=== PATIENT | female | born 1990 | race Caucasian/White ===

== ENCOUNTER → 2017-08-30 | Outpatient (CLI) | payer BC ==
[~2017-08-30] MED LIST: ACET-749 PO; LEVO25TA PO; MTR600X PO; PREN1TAB29
[2017-08-30 14:52] LABS: PREG INTERNAL NEGATIVE QC NEG CLEAR BACKGROUND; PREG INTERNAL POSITIVE QC POS CONTROL LINE
== END | disposition home or self-care (01) ==
LOC: C.LABSPEC 14:03
PROVIDERS: ATTEND Physician Assistant
DX: N91.2 Amenorrhea, unspecified (principal)

== ENCOUNTER → 2017-12-01 | Outpatient (CLI) | payer OTHER | END | disposition home or self-care (01) | LOC: C.LAB1850 08:01 | PROVIDERS: ATTEND Internal Medicine Endocrinology, Diabetes & Metabolism | DX: R63.5 Abnormal weight gain (principal) ==

== ENCOUNTER → 2018-01-13 | Outpatient (CLI) | payer OTHER ==
[2018-01-14 15:30] LABS: MICROSOMAL AB 7 IU/ML (<9)
== END | disposition home or self-care (01) ==
LOC: C.LABMFLN 08:28
PROVIDERS: ATTEND Internal Medicine Endocrinology, Diabetes & Metabolism
DX: R53.83 Other fatigue (principal); R63.5 Abnormal weight gain

== ENCOUNTER → 2018-06-28 | Outpatient (CLI) | payer OTHER ==
[~2018-06-28] MED LIST changes: -ACET-749 PO; +ACET300T3 PO
[2018-06-28 13:55] LABS: ALT/SGPT 25 U/L (12-78); AST/SGOT 14 U/L (15-37); BLOOD UREA NITROGEN 11 mg/dl (7-18); CALCIUM 8.9 mg/dl (8.5-10.1); CARBON DIOXIDE 25 mmol/L (21-32); CHOLESTEROL 153 mg/dl (0-200); CREATININE 0.87 mg/dl (0.60-1.20); GLUCOSE 82 mg/dl (70-99); LDL CHOLESTEROL CALCULATED 84 mg/dl; POTASSIUM 3.8 mmol/L (3.5-5.1); SODIUM 137 mmol/L (136-145)
== END | disposition home or self-care (01) ==
LOC: C.LABMFLN 08:54
PROVIDERS: ATTEND Family Medicine
DX: Z13.220 Encounter for screening for lipoid disorders (principal); Z13.1 Encounter for screening for diabetes mellitus

== ENCOUNTER 2019-04-20 06:53 | Inpatient (IN) ==
--- NOTE | 2019-04-20 07:33 | History & Physical Report ---
Date of Service April 20, 2019 Assessment & Plan (1) 38 weeks gestation of : Abby is a 28yo at 383 weeks who presents with leakage of fluid -Nitrazine positive - She is GBS negative, RI, VDRL/RPR nonreactive, Blood Type B- �Vertex presentation by ultrasound - has been complicated by a dilated renal pelvis. She has a rectal abscess at 32 weeks treated with antibiotics -Admit to labor and delivery for rupture of membranes �Routine care �Lactated Ringer's 125 cc/h �Anticipate vaginal delivery with epidural, consult anesthesia as routine (2) Leakage of amniotic fluid: History of Present Illness Primary Care Provider: Adam Albrecht MD Abby is a 28-year-old G2, P1 who presents at 38+3 with concerns of leakage of fluid. She reports that about 430 this morning she had a sudden gush of fluid and thought that her water broke. She did not have any vaginal bleeding. She has not had any strong contractions. She still feeling good movement. She is group B strep negative, blood type B-, rubella immune, VR DL/RPR nonreactive She had a rectal abscess at 32 weeks treated with antibiotics course has been complicated by renal dilated pelvis followed on ultrasound She has no past medical history of diabetes, hypertension, or depression. No history of STIs. No history of migraines. She has a past medical history of hypothyroid treated with levothyroxine. She takes a vitamin daily. No other medications. No known medication allergies. Her prior was a normal spontaneous vaginal delivery at 37+1, uncomplicated. Allergies Allergy/AdvReac Type Severity Reaction Status Date / Time ethinyl estradiol AdvReac Hypertensio Verified 04/20/19 07:59 [From Ortho Tri-Cyclen (28)] n norgestimate AdvReac Hypertensio Verified 04/20/19 07:59 [From Ortho Tri-Cyclen (28)] n Home Medications Home Medications Medication Instructions Recorded Confirmed Type Vitamin 1 tab PO DAILY 04/20/19 04/20/19 History levothyroxine 75 mcg PO DAILY 04/20/19 04/20/19 History Patient History Medical History Hypothyroidism Janneth-rectal abscess Family History Other Hypertension Lung cancer Social History Preferred Language: [place] Communication Ability: Effective Beliefs That Will Affect Care: None marital status: Current Living Situation: Spouse Current Living Situation Comment: and daughter Feels Safe at Home: Yes Safety Concerns: Feels Safe At This Time Smoking Status: Never smoker Second Hand Exposure: No Hx Alcohol Use: No Hx Substance Use: No Review of Systems All systems reviewed & are unremarkable except as noted in HPI & below Physical Exam Physical Exam: General: A&Ox3. NAD. Cooperative. HEENT: Atraumatic, normocephalic. Pulm: CTAB A&P. -wheezes, -rales, -rhonchi. Symmetrical chest rise. No increase work of breathing. No respiratory distress. Cardiac: RRR, -mrg. Radial pulses intact and symmetrical. Abdomen: Abdominal distention consistent with third trimester . No right upper quadrant tenderness. Extremities: Lower legs with swelling and minimal pitting edema bilaterally. PT pulses intact. No leg asymmetry, warmth, tenderness. heart tracing category 1 baseline approximately 130s Vertex presentation on ultrasound Results & Data Vital Signs (Past 12 Hours) Vital Signs Temp Pulse Resp BP 04/20/19 07:19 81 141/72 H 04/20/19 07:06 36.8 C 20 04/20/19 07:05 95 H 154/74 H Monitoring External Monitor Category 1 Supervising Physician Co-Signing Physician Notes Patient seen and agree with the above findings and plan Resident Activity Tracking Resident Involvement: Resident Care Provided Care Provided: Adult Hospital Medicine
[2019-04-20] MEDS ORDERED: OXYTOCIN 30 UNITS/500 ML BAG IV PRN ×2 (08:02→10:16)
[2019-04-20] MEDS ORDERED: CALCIUM CARBONATE 500 MG CHEWABLE TAB PO PRN (08:02)
[2019-04-20 08:40] LABS: Hematocrit (blood only) 36.9 % (37-47); Hemoglobin 12.7 g/dL (12.0-16.0); Mean Corpuscular Volume 85.4 fL (80-100); Mean Platelet Volume 12.4 fL (7.4-10.4); Platelet Count 141 K/uL (130-400); RDW Coefficient of Variation 13.9 % (11.5-14.5); RDW Standard Deviation 43.4 fL (36.4-46.3); Red Blood Count 4.32 M/uL (4.2-5.4); White Blood Count 6.79 K/uL (4.8-10.8)
[2019-04-20 08:43] LABS: Mean Corpuscular Hgb Conc 34.4 g/dL (32-36)
[2019-04-20] MEDS: LACTATED RINGER'S 1,000 ML IV PRN ×3 (10:39→14:42)
[2019-04-20] MEDS ORDERED: fentaNYL citrate 100 MCG/2 ML VIAL ONE (14:10)
[2019-04-20] MEDS ORDERED: BUPIVACAINE 0.25% 30 ML VIAL ONE (14:10)
[2019-04-20] MEDS ORDERED: ePHEDrine sulfate 50 MG/ML AMP ONE (14:10)
[2019-04-20] MEDS ORDERED: fentaNYL 2MCG/ML ROPIV 1.25MG/ML 100 ML BAG EPI ONE (14:11)
--- NOTE | 2019-04-20 16:01 | Anesthesiology Consultation ---
Date of Service April 20, 2019 Assessment & Plan (1) Encounter for pre-operative examination: Chart Review Chart Review: Patient NOT seen in Pre Admission Testing and Acceptable Risk for Labor Epidural Consults Requested none ASA ASA2 Proposed Anesthesia Anesthesia Type: Labor Epidural Risk / Benefits Reviewed With: PT / POA / Parent / Guardian, Accepts Plan and Informed Consent Obtained History Height/Weight Height: 5 ft 1 in Weight: 106.141 kg Allergies Allergy/AdvReac Type Severity Reaction Status Date / Time ethinyl estradiol AdvReac Hypertensio Verified 04/20/19 07:59 [From Ortho Tri-Cyclen (28)] n norgestimate AdvReac Hypertensio Verified 04/20/19 07:59 [From Ortho Tri-Cyclen (28)] n Medications Home Medications Medication Instructions Recorded Confirmed Last Taken levothyroxine 75 mcg PO DAILY 04/20/19 04/20/19 04/19/19 07:30 vit no.[id number] 1 tab PO DAILY 04/20/19 04/20/19 04/19/19 07:30 [ Vitamin] Active Medications Generic Name Dose Route Start Last Admin Trade Name Freq PRN Reason Stop Dose Admin Lactated Ringer's 1,000 mls @ 125 mls/hr 04/20/19 08:02 04/20/19 14:42 Lr IV 04/22/19 08:01 999 mls/hr .Q8H PRN Administration L&D Protocol Protocol Oxytocin 30 units in 500 mls @ 5 mls/hr 04/20/19 10:16 04/20/19 11:52 Pitocin IV 04/22/19 10:15 0.3 units/hr .Q24H PRN 5 mls/hr Labor Induction/Augmentation Titration Protocol 0.3 UNITS/HR NPO Date Last Intake of Fluids: 04/20/19 Time Last Intake of Fluids: 09:00 Date Last Intake of Solids: 04/20/19 Time Last Intake of Solids: 09:00 Past Medical History Medical History Hypothyroidism Janneth-rectal abscess Exercise / Class Metabolic Activity II 4-5 Yardwork/Stairs/Walk up hill Past Family History Family History Other Hypertension Lung cancer Past Anesthesia History No Hx of Anesthesia Complications and No Family Hx of Anesthesia Complications History of PONV No Hx of PONV and No Hx of Motion Sickness Social History Smoking Status: Never smoker Hx Alcohol Use: No Hx Substance Use: No substance use type: does not use Physical Exam Vital Signs Last Vital Signs Temp 36.5 C 04/20/19 14:32 Pulse 62 04/20/19 15:56 Resp 20 04/20/19 14:32 BP 99/55 L 04/20/19 15:49 Pulse Ox 100 04/20/19 15:56 ENMT Mouth: no dentition abnormality Thyromental Distance: > or= 3.5 Finger Breadths Mallampati Class: II Neck normal visual inspection Respiratory normal respiratory effort Auscultation: lungs clear to auscultation bilaterally Cardiovascular Rate/Rhythm: regular rate and regular rhythm Psychiatric Orientation: alert
--- NOTE | 2019-04-20 16:15 | Labor Progress Brief Note ---
Date of Service April 20, 2019 Subjective Comfortable with epidural Assessment & Plan (1) PROM (premature rupture of membranes): Continue augmentation and epidural. PROM onset of labor timing: onset of labor within 24 hours of rupture PROM gestational age: full term Qualified Code(s): O42.02 - Full-term premature rupture of membranes, onset of labor within 24 hours of rupture Present on Admission?: Yes Physical Exam Physical Exam: FHT Cat 1 after repositioning off of bedpan. Cvx 5cm [place] Q2-3 Results & Data Vital Signs (Past 12 Hours) Vital Signs Temp Pulse Resp BP Pulse Ox 04/20/19 16:11 69 100 04/20/19 16:06 65 100 04/20/19 16:03 65 104/57 L 04/20/19 16:01 68 100 04/20/19 15:56 62 100 04/20/19 15:51 77 100 04/20/19 15:49 66 99/55 L 04/20/19 15:46 70 100 04/20/19 15:41 80 100 04/20/19 15:36 66 100 04/20/19 15:33 66 114/58 L 04/20/19 15:31 62 100 04/20/19 15:26 67 100 04/20/19 15:21 63 100 04/20/19 15:17 75 119/66 04/20/19 15:16 70 100 04/20/19 15:14 66 128/69 04/20/19 15:11 67 122/67 99 04/20/19 15:08 63 128/70 04/20/19 15:06 74 100 04/20/19 15:05 63 142/90 H 04/20/19 15:02 67 140/81 04/20/19 15:01 68 100 04/20/19 14:56 74 99 04/20/19 14:51 78 100 04/20/19 14:46 82 100 04/20/19 14:45 61 92 04/20/19 14:41 61 98 04/20/19 14:36 81 100 04/20/19 14:32 36.5 C 66 20 137/78 04/20/19 14:31 66 100 04/20/19 11:51 66 147/81 H 04/20/19 11:25 36.9 C 18 04/20/19 10:44 72 129/88 04/20/19 07:19 81 141/72 H 04/20/19 07:10 36.8 C 20 04/20/19 07:06 36.8 C 20 04/20/19 07:05 95 H 154/74 H
[2019-04-20] MEDS ORDERED: NALOXONE HCL 1 MG in SODIUM CHLORIDE 0.9% 1000ML 1,000 ML IV PRN (16:16)
[2019-04-20] MEDS ORDERED: NALOXONE HCL 0.4 MG/1 ML VIAL/CARP IV PRN (16:16)
[2019-04-20] MEDS ORDERED: ePHEDrine sulfate 50 MG/ML AMP IV PRN (16:16)
[2019-04-20] MEDS ORDERED: DiphenhydrAMINE HCL 50 MG/ML VIAL IV PRN (16:16)
[2019-04-20] MEDS ORDERED: NALBUPHINE HCL INJ 10 MG/ML AMP IV PRN (16:16)
[2019-04-20] MEDS ORDERED: fentaNYL 2MCG/ML ROPIV 1.25MG/ML 100 ML BAG EPI PRN (16:16)
--- NOTE | 2019-04-20 17:25 | Procedure Note ---
Vaginal Delivery Summary Date of Service April 20, 2019 Abby pushed to deliver the head of her infant in occiput anterior presentation. The head restituted with the right shoulder anterior. There was noted to be a tight shoulder cord around the left shoulder. The right arm delivered spontaneously, and then the left shoulder followed by the remainder of the 's body. The was placed on the maternal abdomen and was vigorous. The cord was doubly clamped and cut by the father of the baby. A second-degree laceration of the perineum was repaired in the usual manner with Vicryl suture. The placenta then delivered spontaneously and was intact with a three-vessel cord. Fundus was firm, lochia was minimal, and mo ther and baby were in good condition at the end of the procedure. EBL 200.
[2019-04-20] MEDS ORDERED: LACTATED RINGER'S 1,000 ML IV SCH (17:46)
[2019-04-20] MEDS ORDERED: SUPERCREAM 0.870% 15 GM JAR EXT PRN (17:46)
[2019-04-20] MEDS ORDERED: IBUPROFEN 600 MG TAB PO PRN (17:46)
[2019-04-20] MEDS ORDERED: BENZOCAINE 20% AER SPR 82.5 GM CAN EXT PRN (17:46)
[2019-04-20] MEDS ORDERED: DIPHTHERIA/TETANUS/PERTUSSIS 0.5 ML SYR/VIAL IM ONE (17:46)
[2019-04-20] MEDS ORDERED: HYDROCORTISONE ACETATE 25 MG SUPP PR PRN (17:46)
[2019-04-20] MEDS ORDERED: OXYCODONE/ACETAMINOPHEN 5mg/325mg TAB PO PRN (17:46)
[2019-04-20] MEDS ORDERED: ACETAMINOPHEN 325 MG TAB PO PRN (17:46)
--- NOTE | 2019-04-20 17:55 | Anesthesia Procedure Note ---
Date of Service April 20, 2019 Anesthesia Post Epidural Note Vital Signs Vital Signs: Temp Pulse Resp BP Pulse Ox 04/20/19 17:48 69 120/69 04/20/19 17:33 74 116/61 04/20/19 17:18 83 118/56 L 04/20/19 17:16 79 100 04/20/19 17:11 129 H 100 04/20/19 17:06 113 H 98 04/20/19 17:05 114 H 94 04/20/19 17:03 81 117/64 04/20/19 17:01 83 100 04/20/19 16:56 74 100 04/20/19 16:51 69 100 04/20/19 16:49 71 124/70 04/20/19 16:46 83 100 04/20/19 16:41 72 100 04/20/19 16:36 83 100 04/20/19 16:34 71 120/66 04/20/19 16:31 79 100 04/20/19 16:26 71 100 04/20/19 16:21 67 100 04/20/19 16:18 70 111/62 04/20/19 16:16 68 100 04/20/19 16:11 69 100 04/20/19 16:06 65 100 04/20/19 16:03 65 104/57 L 04/20/19 16:01 68 100 04/20/19 15:56 62 100 04/20/19 15:51 77 100 04/20/19 15:49 66 99/55 L 04/20/19 15:46 70 100 04/20/19 15:41 80 100 04/20/19 15:36 66 100 04/20/19 15:33 66 114/58 L 04/20/19 15:31 62 100 04/20/19 15:26 67 100 04/20/19 15:21 63 100 04/20/19 15:17 75 119/66 04/20/19 15:16 70 100 04/20/19 15:14 66 128/69 04/20/19 15:11 67 122/67 99 04/20/19 15:08 63 128/70 04/20/19 15:06 74 100 04/20/19 15:05 63 142/90 H 04/20/19 15:02 67 140/81 04/20/19 15:01 68 100 04/20/19 14:56 74 99 04/20/19 14:51 78 100 04/20/19 14:46 82 100 04/20/19 14:45 61 92 04/20/19 14:41 61 98 04/20/19 14:36 81 100 04/20/19 14:32 36.5 C 66 20 137/78 04/20/19 14:31 66 100 04/20/19 11:51 66 147/81 H 04/20/19 11:25 36.9 C 18 04/20/19 10:44 72 129/88 04/20/19 07:19 81 141/72 H 04/20/19 07:10 36.8 C 20 04/20/19 07:06 36.8 C 20 04/20/19 07:05 95 H 154/74 H Notes Mental Status: alert / awake / arousable Nausea / Vomiting: adequately controlled Pain: adequately controlled Airway Patency, RR, SpO2: stable & adequate BP & HR: stable & adequate Hydration State: stable & adequate Neuraxial Anesthesia: was administered and sensory block is resolving Anesthetic Complications: no major complications apparent and Pt Satisfied with anesthetic care Epidural: Removed without complications and With tip intact
[2019-04-20] MEDS: DOCUSATE SODIUM 100 MG CAP PO SCH (21:45)
--- NOTE | 2019-04-21 06:24 | Obstetrical Progress Note ---
Date of Service <Myles Yanez MD - Last Filed: 04/21/19 06:23> April 21, 2019 Assessment & Plan <Myles Yanez MD - Last Filed: 04/21/19 06:23> (1) 38 weeks gestation of : (2) Leakage of amniotic fluid: (3) Vaginal delivery: Abby is a 28yo at 383 weeks who presented with leakage of fluid now s/p PPD#1 - She is GBS negative, RI, VDRL/RPR nonreactive, Blood Type B- - Feels well today. Eating well, voiding well, ambulating well. - Pain well controlled with ibuprofen 600mg Q4H PRN. - without difficulty - Routine care - After discharge will have [address] Cota. Subjective <Myles Yanez MD - Last Filed: 04/21/19 06:23> Ambulation: ambulating normally Voiding: no voiding problems Passing Gas:: Yes Diet Tolerance:: regular diet Lochia:: Moderate Feeding Type:: breast feeding Current Pain Level(1-10): 0 Review of Systems Denies fever, chills, sweats Denies shortness of breath, difficulty breathing, chest pain, palpitations, chest pressure. Denies breast pain. Denies dysuria. Denies headache. Physical Exam <Myles Yanez MD - Last Filed: 04/21/19 06:23> Vital Signs (Past 24 Hours) Last Vital Signs Temp 36.7 C 04/21/19 04:30 Pulse 68 04/21/19 04:30 Resp 17 04/21/19 04:30 BP 122/80 04/21/19 04:30 Pulse Ox 99 04/21/19 04:30 General: Alert, oriented. No acute distress. Cardiac: Regular rate and rhythm, no murmurs/rubs/gallops. Respiratory: Clear to auscultation anterior and posteriorly, no wheezes/rales/rhonchi. No increased work of breathing. Symmetrical chest rise. No respiratory distress. Abdomen: Soft, nontender, nondistended. Bowel sounds present. Uterus: Uterine fundus firm, palpable 2cm below umbilicus. Lower Extremities: No lower extremity edema or swelling. No deep calf pain. Vince's negative bilaterally. <Shavonne Cota MD - Last Filed: 04/21/19 07:54> Co-Signing Physician Notes I have reviewed the resident's note and examined the patient myself, and agree with the note above. Resident Activity Tracking <Myles Yanez MD - Last Filed: 04/21/19 06:23> Resident Involvement: Resident Care Provided Care Provided: Adult Hospital Medicine
[2019-04-21] MEDS: LEVOTHYROXINE SODIUM 75 MCG TABLET PO SCH (06:32)
[2019-04-21 07:53] LABS: Hematocrit (blood only) 35.8 % (37-47); Hemoglobin 12.2 g/dL (12.0-16.0); Mean Corpuscular Hgb Conc 34.1 g/dL (32-36); Mean Corpuscular Volume 85.6 fL (80-100); Mean Platelet Volume 12.2 fL (7.4-10.4); Platelet Count 118 K/uL (130-400); Platelet Estimate Normal (Normal); RDW Standard Deviation 43.4 fL (36.4-46.3); Red Blood Count 4.18 M/uL (4.2-5.4); White Blood Count 7.89 K/uL (4.8-10.8)
[2019-04-21] MEDS: DOCUSATE SODIUM 100 MG CAP PO SCH ×2 (11:03→20:34)
[2019-04-21] MEDS: PRENATAL VITAMIN 1 TAB PO SCH (11:03)
[2019-04-22] MEDS: LEVOTHYROXINE SODIUM 75 MCG TABLET PO SCH (06:08)
--- NOTE | 2019-04-22 06:51 | Obstetrical Progress Note ---
Date of Service <Myles Yanez MD - Last Filed: 04/22/19 06:51> April 22, 2019 Assessment & Plan <Myles Yanez MD - Last Filed: 04/22/19 06:51> (1) Vaginal delivery: Abby is a 28yo at 383 weeks who presented with leakage of fluid now s/p PPD#2 - She is GBS negative, RI, VDRL/RPR nonreactive, Blood Type B- - Feels well today. Eating well, voiding well, ambulating well. - Pain well controlled with ibuprofen 600mg Q4H PRN. - without difficulty - Routine care - After discharge will have [address] Cota. Subjective <Myles Yanez MD - Last Filed: 04/22/19 06:51> Ambulation: ambulating normally Voiding: no voiding problems Passing Gas:: Yes Diet Tolerance:: regular diet Lochia:: Small Feeding Type:: breast feeding Current Pain Level(1-10): 0 Review of Systems Denies fever, chills, sweats Denies shortness of breath, difficulty breathing, chest pain, palpitations, chest pressure. Denies breast pain. Denies dysuria. Denies headache. Physical Exam <Myles Yanez MD - Last Filed: 04/22/19 06:51> General: Alert, oriented. No acute distress. Cardiac: Regular rate and rhythm, no murmurs/rubs/gallops. Respiratory: Clear to auscultation anterior and posteriorly, no wheezes/rales/rhonchi. No increased work of breathing. Symmetrical chest rise. No respiratory distress. Abdomen: Soft, nontender, nondistended. Bowel sounds present. Uterus: Uterine fundus firm, palpable >2cm below umbilicus. Lower Extremities: No lower extremity edema or swelling. No deep calf pain. Vince's negative bilaterally. Results & Data <Myles Yanez MD - Last Filed: 04/22/19 06:51> Vital Signs (Past 12 Hours) Vital Signs Temp Pulse Resp BP Pulse Ox 04/21/19 23:15 36.6 C 75 14 137/93 97 04/21/19 20:20 36.7 C 88 16 135/81 98 <Fariba Treadwell MD, FACOG - Last Filed: 04/22/19 07:34> Co-Signing Physician Notes Resident Physician Supervision Note: I interviewed and examined the patient. Discussed with Dr. Yanez and agree with findings and plan as documented in the note. Any exceptions or clarifications are listed here: Doing well. Plan d/c home. Instructions given. Documented By: Fariba Treadwell MD, FACOG Resident Activity Tracking <Myles Yanez MD - Last Filed: 04/22/19 06:51> Resident Involvement: Resident Care Provided Care Provided: Adult Hospital Medicine
[2019-04-22 07:06] LABS: Hematocrit (blood only) 39.7 % (37-47); Hemoglobin 13.1 g/dL (12.0-16.0)
[2019-04-22] MEDS: DOCUSATE SODIUM 100 MG CAP PO SCH (09:07)
[2019-04-22] MEDS: PRENATAL VITAMIN 1 TAB PO SCH (09:08)
== END 2019-04-22 11:30 | disposition home or self-care (01) | DRG 807 ==
LOC: OPB 06:53 → 4S1 06:56 → 4S2 20:24